=== PATIENT | female | born 1960 | race African-American/Black ===

== ENCOUNTER 2020-01-17 09:37 | Emergency (ER) | payer OTHER ==
[~2020-01-17] VITALS: Ht 165.1 cm; Wt 68.0 kg
--- NOTE | 2020-01-17 09:38 | NUR ---
came in for dizziness since this morning around 630am, not taking her bp meds, x 1 month, to ER bed 9, hooked to monitor, changed to hosp gown, warm blanket provided, breathing even and unlabored. Dr Forbes at bedside
[2020-01-17] MEDS ORDERED: IV NS 0.9% 500 ML BAG IV ONE (10:00)
[2020-01-17] MEDS ORDERED: ONDANSETRON HCL/PF 4 MG/2 ML VIAL IVP ONE (10:00)
[2020-01-17] MEDS ORDERED: ONDANSETRON HCL/PF 4 MG/2 ML VIAL ONE (10:06)
[2020-01-17] MEDS ORDERED: METOPROLOL TARTRATE INJ 5 MG/5 ML AMPUL ONE (10:06)
[2020-01-17 10:11] LABS: BASOPHILS # (AUTO) 0.1 /CMM (0.0-0.2); BASOPHILS % (AUTO) 1.2 % (0.0-2.0); EOSINOPHILS % (AUTO) 1.2 % (0.0-6.0); HEMATOCRIT 54 % (33-45); LYMPHOCYTES # (AUTO) 3.2 /CMM (0.8-4.8); LYMPHOCYTES % (AUTO) 33.9 % (20.0-44.0); MEAN CORPUSCULAR HGB CONC 34 g/dl (31.0-36.0); MEAN CORPUSCULAR VOLUME 90 fL (82-100); MONOCYTES # (AUTO) 0.5 /CMM (0.1-1.30); MONOCYTES % (AUTO) 4.8 % (2.0-12.0); NEUTROPHILS # (AUTO) 5.6 /CMM (1.8-8.9); NEUTROPHILS % (AUTO) 58.9 % (43.0-81.0); PLATELET COUNT (AUTO) 299 /CMM (150-450); RED BLOOD CELL COUNT(AUTO) 5.96 MIL/uL (4.0-5.2); WHITE BLOOD COUNT (AUTO) 9.5 K/uL (4.3-11.0)
[2020-01-17] MEDS ORDERED: DEXT30CA6 MT (10:15)
[2020-01-17 10:16] LABS: CALCIUM, SERUM 9.6 mg/dL (8.5-10.1); CARBON DIOXIDE 31 mmol/L (21-32); CHLORIDE 101 mmol/L (98-107); CREATININE 1.1 mg/dL (0.6-1.3); GLUCOSE 111 mg/dL (74-106); POTASSIUM 4.9 mmol/L (3.5-5.1); SODIUM SERUM 139 mmol/L (136-145); UREA NITROGEN, BLOOD 15 mg/dL (7-18)
[2020-01-17] MEDS: METOPROLOL TARTRATE INJ 5 MG/5 ML AMPUL IV ONE ×2 (10:26→10:39)
[2020-01-17 10:27] LABS: ALANINE AMINOTRANSFERASE 33 U/L (12-78); ALBUMIN 4.3 g/dL (3.4-5.0); ALKALINE PHOSPHATASE 134 U/L (46-116); ASPARTATE AMINOTRANSFERASE 44 U/L (15-37); BILIRUBIN,TOTAL 0.5 mg/dL (0.2-1.0); TOTAL PROTEIN, SERUM 9.1 g/dL (6.4-8.2)
--- NOTE | 2020-01-17 11:44 | NUR ---
IV removed. Catheter intact and site benign. Pressure and 4x4 applied to site. No bleeding noted.
[2020-01-17 11:50] VITALS: BP 116/62
--- NOTE | 2020-01-17 11:50 | NUR ---
Patient discharged to home in stable condition. Written and verbal after care instructions given. Patient verbalizes understanding of instruction.
== END 2020-01-17 11:50 | disposition home or self-care (01) ==
LOC: EDBD 09:37 → ER 09:38
DX: I10 Essential (primary) hypertension (principal); R42 Dizziness and giddiness; R07.89 Other chest pain
CPT/HCPCS: 36415; 80048; 80076; 84484; 85025; 93005; 96374; 99285; J3490; J7040; J2405

== ENCOUNTER 2022-12-01 02:48 | Emergency (ER) | payer BC, OTHER ==
[~2022-12-01] VITALS: Ht 162.6 cm; Wt 77.1 kg
[~2022-12-01 02:48] MED LIST: DEXT30CA6 MT
--- NOTE | 2022-12-01 03:14 | NUR ---
DR. BUTTERFIELD AT BEDSIDE
--- NOTE | 2022-12-01 03:15 | NUR ---
20G STARTED ON RFA. BLOOD COLLECTED SENT TO LAB
--- NOTE | 2022-12-01 03:19 | NUR ---
X-RAY AT BEDSIDE
[2022-12-01 03:24] LABS: BASOPHILS % (AUTO) 0.5 % (0.0-2.0); HEMATOCRIT 49 % (33-45); HEMOGLOBIN 16.1 g/dL (11.5-14.8); LYMPHOCYTES # (AUTO) 1.5 K/uL (0.8-4.8); LYMPHOCYTES % (AUTO) 15.8 % (20.0-44.0); MEAN CORPUSCULAR HGB CONC 33 g/dl (31.0-36.0); MEAN CORPUSCULAR VOLUME 88 fL (82-100); MONOCYTES # (AUTO) 0.4 K/uL (0.1-1.30); MONOCYTES % (AUTO) 4.4 % (2.0-12.0); NEUTROPHILS # (AUTO) 7.4 K/uL (1.8-8.9); NEUTROPHILS % (AUTO) 79.3 % (43.0-81.0); PLATELET COUNT (AUTO) 359 K/uL (150-450); RED BLOOD CELL COUNT(AUTO) 5.51 MIL/uL (4.0-5.2); WHITE BLOOD COUNT (AUTO) 9.4 K/uL (4.3-11.0)
[2022-12-01] MEDS ORDERED: NITROGLYCERIN 0.4 MG/TAB BOTTLE SL ONE (03:30)
[2022-12-01] MEDS ORDERED: ASPIRIN 325 MG TABLET PO ONE (03:30)
[2022-12-01] MEDS ORDERED: ASPIRIN 325 MG TABLET ONE (03:30)
[2022-12-01] MEDS ORDERED: NITROGLYCERIN 0.4 MG/TAB BOTTLE ONE (03:30)
[2022-12-01 03:45] LABS: ALANINE AMINOTRANSFERASE 35 U/L (12-78); ALBUMIN 4.2 g/dL (3.4-5.0); ALKALINE PHOSPHATASE 130 U/L (46-116); ASPARTATE AMINOTRANSFERASE 22 U/L (15-37); BILIRUBIN,DIRECT 0.1 mg/dL (0.0-0.2); BILIRUBIN,TOTAL 0.3 mg/dL (0.2-1.0); CALCIUM, SERUM 10.4 mg/dL (8.5-10.1); CARBON DIOXIDE 25 mmol/L (21-32); CHLORIDE 103 mmol/L (98-107); GLUCOSE 165 mg/dL (74-106); POTASSIUM 4.1 mmol/L (3.5-5.1); SODIUM SERUM 139 mmol/L (136-145); TOTAL PROTEIN, SERUM 8.6 g/dL (6.4-8.2); UREA NITROGEN, BLOOD 19 mg/dL (7-18)
--- NOTE | 2022-12-01 05:32 | NUR ---
LAB AT BEDSIDE
[2022-12-01 08:39] VITALS: BP 149/78
--- NOTE | 2022-12-01 08:39 | NUR ---
Patient discharged to home in stable condition. Written and verbal after care instructions given. Patient verbalizes understanding of instruction.IV removed. Catheter intact and site benign. Pressure and 4x4 applied to site. No bleeding noted.
== END 2022-12-01 08:40 | disposition home or self-care (01) ==
LOC: ER 02:49
DX: R07.89 Other chest pain (principal); I10 Essential (primary) hypertension; Z79.899 Other long term (current) drug therapy
CPT/HCPCS: 36415; 71045-TC; 80048-TC; 80076-TC; 84484-TC; 85025-TC; 85730-TC

== ENCOUNTER 2023-12-10 18:11 | Emergency (ER) | payer BC ==
[~2023-12-10] VITALS: Ht 165.1 cm; Wt 72.6 kg
[2023-12-10] MEDS ORDERED: KETOROLAC TROMETHAMINE INJ 30 MG/ML VIAL ONE (20:05)
[2023-12-10] MEDS ORDERED: CYCLOBENZAPRINE 10 MG TABLET ONE (20:05)
[2023-12-10] MEDS: KETOROLAC TROMETHAMINE INJ 30 MG/ML VIAL IM ONE (20:10)
[2023-12-10] MEDS: CYCLOBENZAPRINE 10 MG TABLET PO ONE (20:10)
[2023-12-10] MEDS ORDERED: KETO10TA2 PO (21:12)
[2023-12-10] MEDS ORDERED: CYCL10TA9 PO (21:12)
[2023-12-10] MEDS ORDERED: POLY119P2 PO (21:12)
[2023-12-10 21:44] VITALS: BP 130/80; TEMP 98.5; O2SAT 98
== END 2023-12-10 21:45 | disposition home or self-care (01) ==
LOC: ER 18:15
DX: M25.511 Pain in right shoulder (principal); M25.561 Pain in right knee; M54.2 Cervicalgia; I10 Essential (primary) hypertension; V49.9XXA Car occupant (driver) (passenger) injured in unspecified traffic accident, initial encounter; Y93.89 Activity, other specified; Y92.89 Other specified places as the place of occurrence of the external cause; Y99.8 Other external cause status
CPT/HCPCS: 99284; 96372; 73564; 73030; J1885

== ENCOUNTER 2024-07-07 23:13 | Emergency (ER) | payer BC ==
[~2024-07-07] VITALS: Ht 165.1 cm; Wt 74.8 kg
[~2024-07-07 23:13] MED LIST changes: +CYCL10TA9 PO; +KETO10TA2 PO; +POLY119P2 PO
[2024-07-08 01:03] LABS: BASOPHILS # (AUTO) 0.1 K/uL (0.0-0.2); BASOPHILS % (AUTO) 0.7 % (0.0-2.0); EOSINOPHILS # (AUTO) 0.1 K/uL (0.0-0.7); HEMATOCRIT 47 % (33-45); HEMOGLOBIN 16.2 g/dL (11.5-14.8); LYMPHOCYTES # (AUTO) 2.3 K/uL (0.8-4.8); LYMPHOCYTES % (AUTO) 26.2 % (20.0-44.0); MEAN CORPUSCULAR HEMOGLOBIN 30 PG (26.0-33.0); MEAN CORPUSCULAR HGB CONC 34 g/dl (31.0-36.0); MEAN CORPUSCULAR VOLUME 88 fL (82-100); MONOCYTES # (AUTO) 0.7 K/uL (0.1-1.30); MONOCYTES % (AUTO) 7.5 % (2.0-12.0); NEUTROPHILS # (AUTO) 5.8 K/uL (1.8-8.9); NEUTROPHILS % (AUTO) 64.6 % (43.0-81.0); PLATELET COUNT (AUTO) 284 K/uL (150-450); RED BLOOD CELL COUNT(AUTO) 5.39 MIL/uL (4.0-5.2); RED CELL DISTRIBUTION WIDTH 14.6 % (11.5-15.0); WHITE BLOOD COUNT (AUTO) 8.9 K/uL (4.3-11.0)
[2024-07-08 01:23] LABS: CALCIUM, SERUM 9.4 mg/dL (8.5-10.1); POTASSIUM 3.3 mmol/L (3.5-5.1)
[2024-07-08 01:41] LABS: ALBUMIN 3.8 g/dL (3.4-5.0); BILIRUBIN,TOTAL 0.4 mg/dL (0.2-1.0)
[2024-07-08] MEDS ORDERED: POTASSIUM CHLORIDE 20 MEQ TAB.PRT.SR PO ONE (01:59)
[2024-07-08] MEDS: KETOROLAC TROMETHAMINE INJ 30 MG/ML VIAL IM ONE (02:00)
[2024-07-08] MEDS: POTASSIUM CHLORIDE 20 MEQ TAB.PRT.SR PO ONE (02:00)
[2024-07-08] MEDS ORDERED: KETOROLAC TROMETHAMINE INJ 30 MG/ML VIAL ONE (02:05)
[2024-07-08 02:12] VITALS: BP 141/92; TEMP 98.3; O2SAT 98
== END 2024-07-08 02:12 | disposition home or self-care (01) ==
LOC: ER 23:16
DX: I10 Essential (primary) hypertension (principal); R51.9 Headache, unspecified
CPT/HCPCS: 99285; 96372; 93005; 71045; 85025; 36415; 80053; 84484; 83880; 80320; J1885; G0480

== ENCOUNTER 2024-08-06 13:45 | Emergency (ER) | payer BC ==
[~2024-08-06] VITALS: Ht 162.6 cm; Wt 81.6 kg
[2024-08-06] MEDS ORDERED: ACETAMINOPHEN ES 500 MG TABLET ONE (14:57)
[2024-08-06] MEDS: IV NS 0.9% 1,000 ML BAG IV ONE (15:18)
[2024-08-06] MEDS: ACETAMINOPHEN ES 500 MG TABLET PO ONE (15:19)
[2024-08-06 15:33] LABS: BASOPHILS # (AUTO) 0.1 K/uL (0.0-0.2); BASOPHILS % (AUTO) 0.9 % (0.0-2.0); EOSINOPHILS % (AUTO) 0.4 % (0.0-6.0); HEMATOCRIT 46 % (33-45); HEMOGLOBIN 15.2 g/dL (11.5-14.8); LYMPHOCYTES # (AUTO) 0.4 K/uL (0.8-4.8); LYMPHOCYTES % (AUTO) 6.3 % (20.0-44.0); MEAN CORPUSCULAR HEMOGLOBIN 30 PG (26.0-33.0); MEAN CORPUSCULAR HGB CONC 33 g/dl (31.0-36.0); MEAN CORPUSCULAR VOLUME 89 fL (82-100); MONOCYTES # (AUTO) 0.5 K/uL (0.1-1.30); MONOCYTES % (AUTO) 9.8 % (2.0-12.0); NEUTROPHILS # (AUTO) 4.6 K/uL (1.8-8.9); NEUTROPHILS % (AUTO) 82.6 % (43.0-81.0); PLATELET COUNT (AUTO) 231 K/uL (150-450); RED BLOOD CELL COUNT(AUTO) 5.11 MIL/uL (4.0-5.2); RED CELL DISTRIBUTION WIDTH 14.9 % (11.5-15.0); WHITE BLOOD COUNT (AUTO) 5.6 K/uL (4.3-11.0)
[2024-08-06] MEDS ORDERED: IBUPROFEN 400 MG TABLET ONE (15:39)
[2024-08-06] MEDS: IBUPROFEN 400 MG TABLET PO ONE (15:41)
[2024-08-06 16:31] LABS: CALCIUM, SERUM 9.2 mg/dL (8.5-10.1); CREATININE 0.9 mg/dL (0.6-1.3); POTASSIUM 3.4 mmol/L (3.5-5.1)
[2024-08-06 16:43] VITALS: BP 150/89; TEMP 98.6; O2SAT 98
== END 2024-08-06 16:43 | disposition home or self-care (01) ==
LOC: ER 13:50
DX: J06.9 Acute upper respiratory infection, unspecified (principal); R06.02 Shortness of breath; R07.9 Chest pain, unspecified; I10 Essential (primary) hypertension
CPT/HCPCS: 99285; 96360; 71045; 85025; 80048; 36415; J7030